=== PATIENT | male | born 1985 | race Caucasian/White ===

== ENCOUNTER 2018-12-12 21:03 | Emergency (ER) | payer SELFPAY ==
[~2018-12-12] VITALS: Wt 88.7 kg
--- NOTE | 2018-12-13 01:35 | ERD ---
ER Documentation Chief Complaint Chief Complaint RT UQ PAIN X4DAYS WORSE WHEN SITTING AND S/P EATING HPI 33-year-old male, presents to the emergency department, complaining of 4 days with right upper quadrant abdominal pain, sharp, constant, 7/10, worsened by fatty food, denies fevers, no chills, no nausea or vomiting. No diarrhea or constipation, no urinary symptoms. ROS All systems reviewed and are negative except as per history of present illness. Medications Home Meds Active Scripts Acetaminophen* (Tylenol*) 325 Mg Tablet, 2 TAB PO Q8 PRN for PAIN AND OR ELEVATED TEMP, #20 TAB Prov:MANDY SMITH MD 12/13/18 Ranitidine Hcl* (Zantac*) 150 Mg Tablet, 150 MG PO BID PRN for EPIGASTRIC PAIN, #14 TAB Prov:MANDY SMITH MD 12/13/18 Allergies Allergies: Coded Allergies: No Known Allergy (Unverified , 12/13/18) PMhx/Soc Hx Alcohol Use: Yes Hx Substance Use: No Hx Tobacco Use: No FmHx Family History: No diabetes, No coronary disease Physical Exam Vitals Vital Signs Date Temp Pulse Resp B/P (MAP) Pulse Ox O2 O2 Flow FiO2 Time Delivery Rate 12/13/18 98.5 59 18 118/82 98 Room Air 03:04 (94) 12/12/18 97.3 87 22 159/94 97 21:16 (115) Physical Exam Const: No acute distress Head: Atraumatic Eyes: Normal Conjunctiva ENT: Normal External Ears, Nose and Mouth. Neck: Full range of motion. No meningismus. Resp: Clear to auscultation bilaterally Cardio: Regular rate and rhythm, no murmurs Abd: Soft, non tender, non distended. Normal bowel sounds Skin: No petechiae or rashes Back: No midline or flank tenderness Ext: No cyanosis, or edema Neur: Awake and alert Psych: Normal Mood and Affect Result Diagram: 12/13/186 12/13/18145 Results 24 hrs Laboratory Tests Test 12/13/18 01:46 White Blood Count 8.5 10^3/ul Red Blood Count 5.17 10^6/ul Hemoglobin 16.3 g/dl Hematocrit 47.8 % Mean Corpuscular Volume 92.5 fl Mean Corpuscular Hemoglobin 31.5 pg Mean Corpuscular Hemoglobin Concent 34.1 g/dl Red Cell Distribution Width 11.8 % Platelet Count 282 10^3/UL Mean Platelet Volume 9.8 fl Immature Granulocytes % 0.500 % Neutrophils % 51.7 % Lymphocytes % 35.2 % Monocytes % 10.4 % Eosinophils % 1.6 % Basophils % 0.6 % Nucleated Red Blood Cells % 0.0 /100WBC Immature Granulocytes # 0.040 10^3/ul Neutrophils # 4.4 10^3/ul Lymphocytes # 3.0 10^3/ul Monocytes # 0.9 10^3/ul Eosinophils # 0.1 10^3/ul Basophils # 0.1 10^3/ul Nucleated Red Blood Cells # 0.0 10^3/ul Urine Color YELLOW Urine Clarity CLEAR Urine pH 5.0 Urine Specific [place] 1.024 Urine Ketones TRACE mg/dL Urine Nitrite NEGATIVE mg/dL Urine Bilirubin NEGATIVE mg/dL Urine Urobilinogen NEGATIVE mg/dL Urine Leukocyte Esterase NEGATIVE Khadijah/ul Urine Hemoglobin NEGATIVE mg/dL Urine Glucose NEGATIVE mg/dL Urine Total Protein NEGATIVE mg/dl Sodium Level 140 mmol/L Potassium Level 4.0 mmol/L Chloride Level 98 mmol/L Carbon Dioxide Level 32 mmol/L Anion Gap 10 Blood Urea Nitrogen 15 mg/dl Creatinine 0.96 mg/dl Est Glomerular Filtrat Rate mL/min > 60 mL/min Glucose Level 112 mg/dl Calcium Level 10.2 mg/dl Total Bilirubin 0.3 mg/dl Direct Bilirubin 0.00 mg/dl Indirect Bilirubin 0.3 mg/dl Aspartate Amino Transf (AST/SGOT) 49 IU/L Alanine Aminotransferase (ALT/SGPT) 56 IU/L Alkaline Phosphatase 98 IU/L Total Protein 8.7 g/dl Albumin 5.2 g/dl Globulin 3.50 g/dl Albumin/Globulin Ratio 1.48 Lipase 148 U/L Patient: WILFRID SEWELL : 1985 Age: 33 Sex: M MR #: [id number] DOS: 12/13/18 0143 Ordering MD: MANDY SMITH MD Location: [facility] Room/Bed: PROCEDURE: Ultrasound right upper quadrant CLINICAL INDICATION: Abdominal pain. TECHNIQUE: Sonographic imaging of the right upper quadrant was performed with grayscale and color Doppler techniques. COMPARISON: None. FINDINGS: LIVER: Measures 14.9 cm in length without appreciated abnormality. GALLBLADDER: Unremarkable. COMMON BILE DUCT: Measures up to 0.3 cm. PANCREAS: Not well seen. RIGHT KIDNEY: Measures 10.3 cm in length without appreciated abnormality. VISUALIZED AORTA AND INFERIOR VENA CAVA: Unremarkable. IMPRESSION: 1. Gallbladder appears unremarkable. Procedures/MDM Vital signs stable. Differential diagnosis include but not limited to: UTI, colitis, gastroenteritis, kidney stones, irritable bowel syndrome, inflammatory bowel syndrome, malabsorption syndrome, cholelithiasis, food intolerance, medication side effect, pancreatitis, diverticulitis, bowel obstruction. Physical examination and clinical presentation consistent most likely with gastroesophageal reflux During the ED course the patient remained stable, no new complaints. Results and clinical impression discussed with the patient who agrees with management. The patient is stable to be treated outpatient and will be discharged home; some side effects of prescribed medications (headache, rash, nausea, vomiting, diarrhea, drowsiness, habituation, bleeding, hypertension, interactions with other medications) were reviewed. Follow up with the primary care provider in the next 48h is recommended. If symptoms persist, worsen or new symptoms develop, then patient should return to the ED immediately. Instructions explained and given directly by me to the patient with acknowledgment and demonstrated understanding. Disclaimer: Inadvertent spelling and grammatical errors are likely due to EHR/dictation software use and do not reflect on the overall quality of patient care. Also, please note that the electronic time recorded on this note does not necessarily reflect the actual time of the patient encounter. Departure Diagnosis: Primary Impression: Abdominal pain Additional Impression: GERD (gastroesophageal reflux disease) Condition: Stable Additional Instructions: Thank you very much for allowing us to participate in your care. Your health and safety is our top priority at [facility]. Call your primary care doctor TOMORROW for an appointment during the next 2-4 days and bring all the information and medications prescribed. Have prescriptions filled and follow precisely the directions on the label. If the symptoms get worse and your provider is unavailable, return to the Emergency Department immediately. MANDY SMITH MD Dec 13, 2018 01:35
[2018-12-13] MEDS ORDERED: ACET325T33 PO (02:54)
[2018-12-13] MEDS ORDERED: RANI150T35 PO (02:54)
[2018-12-13 03:04] VITALS: BP 118/82; PULSE 59; RESP 18
== END 2018-12-13 03:05 | disposition home or self-care (01) ==
LOC: FTE 21:03
DX: K21.9 Gastro-esophageal reflux disease without esophagitis (principal)
CPT/HCPCS: 36415; 76705; 80053; 81003; 83690; 85025

== ENCOUNTER 2019-02-11 15:07 | Emergency (ER) | payer OTHER ==
[~2019-02-11] VITALS: Wt 85.0 kg
[~2019-02-11 15:07] MED LIST: ACET325T33 PO; RANI150T35 PO
[2019-02-11 15:10] VITALS: BP 165/89; PULSE 65; RESP 18
--- NOTE | 2019-02-11 16:54 | ERD ---
ER Documentation Chief Complaint Chief Complaint RASH X 3 DAYS HPI This is a 33-year-old healthy male presents to the ED complaining of a sudden onset macular rash x3 days. Patient states he initially had sore throat, body aches, myalgias about 2 days prior to having the rash. He states rash is not itchy, and does not burn. Rash first erupted on his hands and has since spread upwards towards his upper extremities, trunk, and thighs. He has not taken any medications for this. No fevers or chills. No other complaints. He no longer has any throat pain and states his rash is improving. ROS All systems reviewed and are negative except as per history of present illness. Medications Home Meds Active Scripts Acetaminophen* (Tylenol*) 325 Mg Tablet, 2 TAB PO Q8 PRN for PAIN AND OR ELEVATED TEMP, #20 TAB Prov:MANDY SMITH MD 12/13/18 Ranitidine Hcl* (Zantac*) 150 Mg Tablet, 150 MG PO BID PRN for EPIGASTRIC PAIN, #14 TAB Prov:MANDY SMITH MD 12/13/18 Allergies Allergies: Coded Allergies: No Known Allergy (Unverified , 12/13/18) PMhx/Soc Medical and Surgical Hx: pt denies Medical Hx, pt denies Surgical Hx Hx Alcohol Use: Yes (SOCIALLY) Hx Substance Use: No Hx Tobacco Use: No Smoking Status: Never smoker Physical Exam Vitals Vital Signs Date Temp Pulse Resp B/P (MAP) Pulse Ox O2 O2 Flow FiO2 Time Delivery Rate 02/11/19 98.1 65 18 165/89 99 15:10 (114) Physical Exam Const: No acute distress Head: Atraumatic Eyes: Normal Conjunctiva. EOMI. PERRL. No conjunctival injection. ENT: No posterior OP erythema. No tonsillar edema or exudates. Neck: Full range of motion. No meningismus. No LAD. Resp: Clear to auscultation bilaterally Cardio: Regular rate and rhythm, no murmurs Skin: + Macular rash to the bilateral upper extremities, no warmth to touch Ext: No cyanosis, or edema Neur: Awake and alert Psych: Normal Mood and Affect Procedures/MDM 33-year-old male presents for appears to be a viral exanthem. Symptoms started approximately 2 days after viral pharyngitis. There is no evidence of strep pharyngitis on physical exam, therefore no rapid strep was done. Suspect his symptoms are viral in nature. He has no fever here and vital signs are normal. No evidence of Olivier Casper's syndrome, Kawasaki's, or sepsis. Patient discharged home recommended Tylenol/Motrin at home. He was given resources to follow-up with in the next 1 week. Strict return precautions were discussed. Blood Pressure Assessment: Patient's blood pressure was elevated (>120/80) but appears stable without evidence of hypertension emergency or urgency. The patient was counseled about the risks of hypertension and urged to pursue outpatient monitoring and therapy within a week with their primary care physician. Departure Diagnosis: Primary Impression: Viral exanthem Condition: Stable Patient Instructions: Self-Care for Skin Rashes, Viral Rash, Exanthem (Child) Referrals: [facility] YOU HAVE RECEIVED A MEDICAL SCREENING EXAM AND THE RESULTS INDICATE THAT YOU DO NOT HAVE A CONDITION THAT REQUIRES URGENT TREATMENT IN THE EMERGENCY DEPARTMENT. FURTHER EVALUATION AND TREATMENT OF YOUR CONDITION CAN WAIT UNTIL YOU ARE SEEN IN YOUR DOCTORS OFFICE WITHIN THE NEXT 1-2 DAYS. IT IS YOUR RESPONSIBILITY TO MAKE AN APPOINTMENT FOR [facility]-UP CARE. IF YOU HAVE A PRIMARY DOCTOR --you should call your primary doctor and schedule an appointment IF YOU DO NOT HAVE A PRIMARY DOCTOR YOU CAN CALL OUR PHYSICIAN REFERRAL HOTLINE AT IF YOU CAN NOT AFFORD TO SEE A PHYSICIAN YOU CAN CHOSE FROM THE FOLLOWING [facility] [address] [facility]. [facility] [address] [facility] [facility] [address] [facility] [facility] [address] [facility] [facility] [address] [facility]. [facility]. [address] [facility]. [facility] YOU HAVE RECEIVED A MEDICAL SCREENING EXAM AND THE RESULTS INDICATE THAT YOU DO NOT HAVE A CONDITION THAT REQUIRES URGENT TREATMENT IN THE EMERGENCY DEPARTMENT. FURTHER EVALUATION AND TREATMENT OF YOUR CONDITION CAN WAIT UNTIL YOU ARE SEEN IN YOUR DOCTORS OFFICE WITHIN THE NEXT 1-2 DAYS. IT IS YOUR RESPONSIBILITY TO MAKE AN APPOINTMENT FOR [facility]-UP CARE. IF YOU HAVE A PRIMARY DOCTOR --you should call your primary doctor and schedule and appointment IF YOU DO NOT HAVE A PRIMARY DOCTOR YOU CAN CALL OUR PHYSICIAN REFERRAL HOTLINE AT . IF YOU CAN NOT AFFORD TO SEE A PHYSICIAN YOU CAN CHOSE FROM THE FOLLOWING [facility] INSTITUTIONS: [facility] [address] [place] [address] [facility] [address] [place] [address] [facility] [address] [place] [address] [facility] URGENT CARE/SPECIALTIES Additional Instructions: Your rash is likely related to recent throat pain. She start to slowly improve. In the meantime, take any Tylenol or Motrin for any fevers or throat pain. Call your primary care doctor TOMORROW for an appointment during the next 2-4 days and bring all the information and medications prescribed. If the symptoms get worse and your provider is unavailable, return to the Emergency Department immediately. ILZZ CORDOVA PA-C February 11, 2019 16:54
== END 2019-02-11 17:20 | disposition home or self-care (01) ==
LOC: FTE 15:07
DX: B09 Unspecified viral infection characterized by skin and mucous membrane lesions (principal)
CPT/HCPCS: 99282